=== PATIENT | female | born 1980 | race African-American/Black ===

== ENCOUNTER 2020-11-12 13:36 | Emergency (ER) | payer OTHER ==
[~2020-11-12] VITALS: Ht 170.2 cm; Wt 100.0 kg
[~2020-11-12 13:36] MED LIST: NOCURR
[2020-11-12 14:48] LABS: BASOPHILS % (AUTO) 0.3 % (0.0-2.0); EOSINOPHILS % (AUTO) 0.3 % (1.0-6.0); HEMATOCRIT 34.8 % (36-46); HEMOGLOBIN 11.6 g/dL (12.0-16.0); LYMPHOCYTES # (AUTO) 1.6 K/uL (1.0-4.8); LYMPHOCYTES % (AUTO) 23.1 % (22.0-44.0); MEAN CORPUSCULAR HEMOGLOBIN 31.3 pg (26.0-34.0); MEAN CORPUSCULAR HGB CONC 33.3 G/dL (31.0-37.0); MEAN CORPUSCULAR VOLUME 94 fL (80-100); MONOCYTES # (AUTO) 0.7 K/uL (0.1-1.0); MONOCYTES % (AUTO) 9.8 % (2.0-9.0); NEUTROPHILS # (AUTO) 4.6 K/uL (1.8-7.7); NEUTROPHILS % (AUTO) 66.5 % (40.0-70.0); PLATELET COUNT (AUTO) 350 K/uL (150-450); RED CELL DISTRIBUTION WIDTH 13.1 % (11.5-14.5)
[2020-11-12 14:50] LABS: COVID AG,FIA SOURCE NASOPHARYNGEAL
[2020-11-12 15:03] LABS: ANION GAP 9 mmol/L (8-16); CALCIUM, TOTAL 8.3 mg/dL (8.8-10.5); CARBON DIOXIDE 24 mmol/L (22-29); CHLORIDE 108 mmol/L (98-107); CREATININE 0.85 mg/dL (0.60-1.30); GLOMERULAR FILTR. RATE CALC > 60 mL/min (>60); GLUCOSE,RANDOM 107 mg/dL (70-110); POTASSIUM 3.8 mmol/L (3.5-5.1); SODIUM SERUM 141 mmol/L (136-145); UREA NITROGEN, BLOOD 9 mg/dL (7-18)
[2020-11-12 15:09] LABS: ALANINE AMINOTRANSFERASE 29 U/L (12-78); ALBUMIN 3.9 g/dL (3.4-5.0); ALKALINE PHOSPHATASE 83 U/L (46-116); ASPARTATE AMINOTRANSFERASE 14 U/L (15-37); BILIRUBIN,TOTAL 0.2 mg/dL (0.1-1.0); TOTAL PROTEIN, SERUM 7.5 g/dL (6.4-8.2)
[2020-11-12] MEDS ORDERED: ASPIRIN 81 MG CHEWABLE TABLET PO ONE (15:30)
[2020-11-12 15:55] LABS: HCG,QUANTITATIVE < 1 mIU/mL (0-6)
[2020-11-12] MEDS ORDERED: SODIUM CHLORIDE 0.9% 100 ML ONE (17:32)
[2020-11-12] MEDS ORDERED: IOHEXOL 350 MG/ML 100 ML VIAL ONE (17:32)
[2020-11-12 18:38] VITALS: BP 150/77
[2020-11-12] MEDS ORDERED: AZITHROMYCIN 500 MG TABLET PO ONE (18:45)
== END 2020-11-12 19:02 | disposition home or self-care (01) ==
LOC: EMS 13:40
DX: J18.9 Pneumonia, unspecified organism (principal); F14.90 Cocaine use, unspecified, uncomplicated; F12.90 Cannabis use, unspecified, uncomplicated; Z20.822 Contact with and (suspected) exposure to COVID-19
CPT/HCPCS: 36415; 71045; 71275; 80053; 84484; 84702; 85025; 85379; 87426; 93005; 99285; J7050; Q9967; U0003